=== PATIENT | female | born 2000 | race Caucasian/White ===

== ENCOUNTER 2019-02-27 08:09 | Outpatient (CLI) | payer BC ==
--- NOTE | 2019-02-28 09:12 | NM ---
RADIOIODINE THYROID UPTAKE AND SCAN: HISTORY: Thyrotoxicosis, unspecified without thyrotoxic crisis RADIOPHARMACEUTICAL: 255 uCi I-123 administered orally FINDINGS: Planar anterior and both anterior oblique images of the thyroid gland were obtained. There is homogeneous tracer distribution to both lobes of the thyroid gland without focal cold or hot nodules. There is diffuse enlargement of the thyroid gland. The 24-hour uptake measures 86 % (normal 10-30%). IMPRESSION: Findings are consistent with hyperthyroid Graves' disease.
== END 2019-02-27 08:10 | disposition home or self-care (01) ==
LOC: NM 08:09
PROVIDERS: ATTEND Internal Medicine Endocrinology, Diabetes & Metabolism
DX: E05.80 Other thyrotoxicosis without thyrotoxic crisis or storm (principal)
CPT/HCPCS: 78014; A9516

== ENCOUNTER 2019-09-07 10:07 | Outpatient (CLI) | payer BC ==
[2019-09-07 10:27] LABS: BHCG - Serum Negative (NEGATIVE); Pregs Control Bar Appear? YES (CONTROL BAR)
[2019-09-07 10:28] LABS: Pregs Control Background? CLEAR/WHITE (CLR/WHITE)
--- NOTE | 2019-09-07 11:40 | NM ---
NM Thyroid I 131 Initial Trtmt HISTORY: Hyperthyroid Graves' disease PROCEDURE: After discussing the risks, benefits, alternatives and radiation precaution issues with the patient, verbal and written consent was obtained for radioiodine therapy. The patient verbalized understanding and was treated with 11 mCi Iodine 131 orally without complications. The patient will f ollow-up with Dr. Leal.
== END 2019-09-07 10:08 | disposition home or self-care (01) ==
LOC: NM 10:07
PROVIDERS: ATTEND Internal Medicine Endocrinology, Diabetes & Metabolism
DX: Z32.00 Encounter for pregnancy test, result unknown (principal); E05.90 Thyrotoxicosis, unspecified without thyrotoxic crisis or storm
CPT/HCPCS: 36415; 79005; 84703; A9517

== ENCOUNTER 2024-01-16 11:12 | Outpatient (CLI) | payer BC | END 2024-01-16 11:13 | disposition home or self-care (01) | LOC: BICRAD 11:12 | PROVIDERS: ATTEND Family Medicine | DX: S50.12XA Contusion of left forearm, initial encounter (principal) ==